=== PATIENT | male | born 1965 | race Caucasian/White ===

== ENCOUNTER 2017-06-04 13:03 | Emergency (ER) | payer SELFPAY ==
[2017-06-04 13:17] VITALS: BMI 29.1
[2017-06-04 15:41] LABS: MCH 30.8 pg (25.7-33.7); MCHC 34.5 g/dl (32.0-35.9); MEAN CELL VOLUME 89.5 fl (80-96); MEAN PLT VOLUME 8.7 fl (7.5-11.1); PLATELET COUNT 218 K/MM3 (134-434); RDW 12.7 % (11.9-15.9); WHITE BLOOD COUNT 8.7 K/mm3 (4.0-10.0)
--- NOTE | 2017-06-04 15:47 | EKG ---
Test Reason : Blood Pressure : / mmHG Vent. Rate : 050 BPM Atrial Rate : 050 BPM P-R Int : 142 ms QRS Dur : 086 ms QT Int : 410 ms P-R-T Axes : 056 007 039 degrees QTc Int : 373 ms SINUS BRADYCARDIA OTHERWISE NORMAL ECG WHEN COMPARED WITH ECG OF 28-MAR-2015 09:31, NO SIGNIFICANT CHANGE WAS FOUND Confirmed by BONNIE MORENO MD ([id number]) on 06/04/2017 3:47:32 PM Referred By: GUNNER JONES Confirmed By:BONNIE MORENO MD
[2017-06-04 16:05] LABS: ANION GAP 4 (8-16); CALCIUM 9.3 mg/dL (8.5-10.1); CO2 30 mmol/L (21-32); GLUCOSE,RANDOM 84 mg/dL (74-106)
[2017-06-04 16:07] LABS: CPK 180 IU/L (39-308); TROPONIN I < 0.02 ng/ml (0.00-0.05)
[2017-06-04] MEDS ORDERED: SODIUM CHLORIDE 1,000 ML IV STA (16:28)
[2017-06-04 17:21] LABS: URINE APPEARANCE CLEAR; URINE BILIRUBIN NEGATIVE (NEGATIVE); URINE BLOOD NEGATIVE (NEGATIVE); URINE COLOR LT. YELLOW; URINE GLUCOSE (UA) NEGATIVE (NEGATIVE); URINE KETONE NEGATIVE (NEGATIVE); URINE LEUK ESTERASE NEGATIVE (NEGATIVE); URINE NITRITE NEGATIVE (NEGATIVE); URINE PROTEIN NEGATIVE (NEGATIVE); URINE UROBILINOGEN 0.2 mg/dL (0.2-1.0)
--- NOTE | 2017-06-04 17:47 | PDOC ---
History of Present Illness - General Chief Complaint: Lightheaded Stated Complaint: DIZZINESS, LIGHTHEADED Time Seen by Provider: 06/04/17 14:36 History Source: Patient - History of Present Illness Initial Comments: 06/04/17 17:45 CC: Lightheadedness Patient is a 51 y.o. male with a PMH of GERD who presents to our facility today c/o of acute onset of lightheadedness. Patient states this afternoon he was sitting down at the table at home when he felt suddenly lightheaded without any associated shortness of breath, chest pain, diaphoresis or dizziness. Patient states he continued to feel lightheaded prompting his visit to the ED. Patient noted that he did feel intermittently dizzy (sensation of room spinning) while getting into the car to come to the hospital however this was momentary and resolved. ROS is positive for tingling and cramping pain in his groin as well as recent anal boil and blurry vision. Past History - Past Medical History Allergies/Adverse Reactions: Allergies Allergy/AdvReac Type Severity Reaction Status Date / Time No Known Allergies Allergy Verified 06/04/17 14:22 Home Medications: Ambulatory Orders NK [No Known Home Medication] 06/04/17 Other medical history: NONE - Psycho/Social/Smoking Cessation Hx Anxiety: No Suicidal Ideation: No Smoking History: Current every day smoker Have you smoked in the past 12 months: Yes Number of Cigarettes Smoked Daily: 10 Information on smoking cessation initiated: Yes 'Breaking Loose' booklet given: 06/04/17 Hx Alcohol Use: No Drug/Substance Use Hx: No Substance Use Type: None Review of Systems - Review of Systems Constitutional: No: Chills, Diaphoresis, Fever, Weakness HEENTM: Yes: Blurred Vision. No: Double Vision, Tinnitus, Throat Pain *Physical Exam - Vital Signs Last Vital Signs Temp Pulse Resp BP Pulse Ox 98.4 F 68 18 146/81 100 06/04/17 13:14 06/04/17 13:14 06/04/17 13:14 06/04/17 13:14 06/04/17 13:14 - Physical Exam General Appearance: Yes: Nourished, Appropriately Dressed HEENT: positive: EOMI, JOHN Neck: positive: Trachea midline, Supple Respiratory/Chest: positive: Lungs Clear, Normal Breath Sounds Cardiovascular: positive: Regular Rhythm, Regular Rate, S1, S2 Gastrointestinal/Abdominal: positive: Normal Bowel Sounds, Tender, Soft Male Genitalia: positive: normal genitalia Rectal Exam: positive: other Musculoskeletal: positive: Normal Inspection Extremity: positive: Normal Capillary Refill, Normal Inspection Neurologic: 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 yellow Urine Appearance Clear Urine pH 7.0 D Urine Protein Negative Urine Glucose (UA) Negative Urine Ketones Negative Urine Blood Negative Urine Nitrite Negative Urine Bilirubin Negative Urine Urobilinogen 0.2 Ur Leukocyte Esterase Negative 06/04/17 15:03 RBC 4.97 MCV 89.5 MCHC 34.5 RDW 12.7 MPV 8.7 - RADIOLOGY Radiology Studies Ordered: Category Date Time Status ABDOMEN US [US] Stat Ultrasound 06/04/17 16:29 Ordered - Medications Given in the ED: ED Medications Discontinued Medications Generic Name Dose Route Start Last Admin Trade Name Freq PRN Reason Stop Dose Admin Sodium Chloride 1,000 mls @ 1,000 mls/hr 06/04/17 16:28 06/04/17 16:35 Normal Saline - IV 06/04/17 17:27 1,000 mls/hr ASDIR STA Administration Medical Decision Making - Medical Decision Making 06/04/17 18:12 Patient is a 51 y.o. male who presents with acute onset of lightheadedness. As patient also c/o groin pain as well as abdominal pain (with subsequent TTP in RUQ as well as positive Encarnacion's sign on PE) as well as blurry vision initial differential diagnosis was broad including ACS vs. Hyperglycemia vs. Cholecystitis vs Dehydration vs. Vertigo. Patient was hemodynamically stable and PE was positive for Encarnacion's sign and scrotal/testicular exam was unremarkable. Patient had a normal gait and no positive signs of cerebellar dysfunction. EKG showed sinus bradycardia (HR 50 BPM) consistent with prior EKG. CBC and BMP were within normal limits and UA was negative for UTI. U/S was negative for cholecystitis and patient was given 1 L IV NS as well as Meclizine and symptoms resolved. Patient was discharged with follow up [address] [place] [address] to establish primary care and instructed to return to the ED should he develop shortness of breath, chest pain or severe discomfort. *DC/Admit/Observation/Transfer Diagnosis at time of Disposition: Vertigo - Discharge Dispostion Disposition: HOME Condition at time of disposition: Improved Admit: No - Patient Instructions Printed Discharge Instructions: DI for Vertigo, DI for Benign Paroxysmal Positional Vertigo Additional Instructions: Please call [phone] to establish primary care at [address] [place] [address]. - Attestations Physician Attestion: 06/04/17 20:34 I, Dr. Yanely Hathaway, attest that this document has been prepared under my direction and personally reviewed by me in its entirety. I further attest, that it accurately reflects all work, treatment, procedures and medical decision -making performed by me.
--- NOTE | 2017-06-04 18:58 | PDOC ---
Attending Attestation - Resident Resident Name: Yanely Hathaway - ED Attending Attestation I have performed the following: I have examined & evaluated the patient, The case was reviewed & discussed with the resident, I agree w/resident's findings & plan, Exceptions are as noted - HPI HPI: 06/04/17 19:10 51y M hx of GERD presents with feeling and lighthead for the past week, it tends to be worse when he is laying down and moving his head. Pt denies any double vision, dysartrhia, numbness/tingling/weakness, neck pain, headache. On exam the pt is in no acute distress, and has extinguising horizontal nysgagmus. cerebellar signs )finger to nose, rapid alternating movements were normal. The rest of his neuro exam and physical exam was as documented by dr. hathaway 06/04/17 19:50 labs reviewed no signs of anemia, metabolic derangement ekg noted for sinus bradycardia Suspect positional vertigo will give meclizine will reassess 06/04/17 20:41 pt feeling improved w meclizineambualtory iwth normal gait will dc with pmd fu return precautions were dsicussed - Physicial Exam PE: 06/06/17 16:56 see above - Medical Decision Making 06/06/17 16:56 see above Heart Score/ECG Review - ECG Impressions Comment:: 06/04/17 20:28 Twelve-lead EKG was performed and reviewed by me. There is normal sinus rhythm with a rate of 50 normal axis normal r wave progression no st change ssuggestive of acute ischemia
[2017-06-04] MEDS ORDERED: MECLIZINE HCL 25 MG TABLET (FP) PO ONE (19:09)
[2017-06-04] MEDS ORDERED: MECLIZINE HCL 25 MG TABLET (FP) ONE (19:21)
[2017-06-04] MEDS ORDERED: SODIUM CHLORIDE 1,000 ML IV ONE (19:35)
[2017-06-04 20:03] VITALS: TEMP 98.1
[2017-06-04 20:49] VITALS: BP 142/71; PULSE 59
== END 2017-06-04 20:51 | disposition home or self-care (01) ==
LOC: JER 13:03
PROC: 3E0337Z Introduction of Electrolytic and Water Balance Substance into Peripheral Vein, Percutaneous Approach (ICD-10-PCS; principal; 2017-06-04)
DX: R42 Dizziness and giddiness (principal); K21.9 Gastro-esophageal reflux disease without esophagitis; F17.210 Nicotine dependence, cigarettes, uncomplicated
CPT/HCPCS: 36415; 76705-TC; 80048; 81003; 82553; 84484; 85027; 93005; 93010; 99283-25

== ENCOUNTER 2020-04-24 11:15 | Emergency (ER) | payer SELFPAY ==
[2020-04-24 11:19] VITALS: BP 129/80; PULSE 68; TEMP 98.2; BMI 29.2
--- NOTE | 2020-04-24 12:19 | PDOC ---
Attending Attestation - Resident Resident Name: Alvaro Becerril - HPI HPI: 04/24/20 12:24 Pt presents to the ED complaining of L ankle pain and swelling after inverting his ankle yesterday. Denies other injuries. Used ice and cold air from the air conditoner yesterday with relief of his pain, but his became concerned when he was still having pain and swelling this morning and convinced him to come in. - Physicial Exam PE: 04/24/20 12:32 Agree with resident exam. PAtient is alert and oriented and in no acute distress. + mild tenderness and swelling over the lateral aspect of the dorsum of the foot, distal to the malleoulus. No tenderness at the medial or lateral malleoli, or at the base of the 5th metatarsal. PAtient is able to weight bear in the ED. - Medical Decision Making 04/24/20 12:39 Pt presents to the ED complaining of L ankle and foot pain after inverting his ankle yesterday. No xray needed by [facility] ankle rules. Will discharge home with angy wrap, instructions to use RICE and to return for worsening symptoms. Discharge - Discharge Information Problems reviewed: Yes Clinical Impression/Diagnosis: Ankle sprain Qualifiers: Encounter type: initial encounter Involved ligament of ankle: unspecified ligament Laterality: left Qualified Code(s): S93.402A - Sprain of unspecified ligament of left ankle, initial encounter Condition: Stable Disposition: HOME - Admission No - Follow up/Referral - Patient Discharge Instructions Patient Printed Discharge Instructions: DI for Ankle Sprain Additional Instructions: you came to the Ed for pain and swelling in your ankle that is most likely caused by an ankle sprain. You should rest your ankle as much as possible and use ice to help with the pain and swelling. keep your foot elevated as much as you can. Return to the ED for severe pain and swelling, if you become unable to bear weight, other worsening symptoms. For pain, take three over the counter ibuprofen or advils every 6-8 hours, with food - Post Discharge Activity Work/Back to School Note: Back to Work
--- NOTE | 2020-04-24 12:47 | PDOC ---
History of Present Illness - General Chief Complaint: Injury Stated Complaint: LEFT ANKLE PAIN Time Seen by Provider: 04/24/20 12:11 History Source: Patient Exam Limitations: No Limitations - History of Present Illness Initial Comments: 54 year old male without significant medical history presented to the ED for evaluation of left ankle injury that occurred yesterday while at work. He states that he "rolled" his ankle while slipping on some salt and felt pain to the ankle but was able to bear weight. He did not notice significant swelling or bruising to the area and had not attempted any medications or icing to improve the pain. Past History - Medical History Allergies/Adverse Reactions: Allergies Allergy/AdvReac Type Severity Reaction Status Date / Time No Known Allergies Allergy Verified 04/24/20 11:16 Home Medications: Ambulatory Orders NK [No Known Home Medication] 04/24/20 COPD: No - Psycho-Social/Smoking History Smoking History: Never smoked Have you smoked in the past 12 months: No Number of Cigarettes Smoked Daily: 10 Information on smoking cessation initiated: No 'Breaking Loose' booklet given: 06/04/17 - Substance Abuse Hx (Audit-C & DAST Scrn) How often the patient has a drink containing alcohol: Never Score: In Men: 4 or > Positive; In Women: 3 or > Positive: 0 Screen Result (Pos requires Nsg. Audit-10AR): Negative In the last yr the pt used illegal drug/Rx for NonMed reason: No Score: Yes response is considered Positive: 0 Screen Result (Positive result requires Nsg. DAST-10): Negative Review of Systems - Review of Systems Able to Perform ROS?: Yes Is the patient limited Senegalese proficient: No Constitutional: No: Chills, Fever Respiratory: No: Cough, Shortness of Breath Cardiac (ROS): No: Chest Pain, Lightheadedness, Palpitations, Syncope ABD/GI: No: Constipated, Diarrhea, Nausea, Vomiting : No: Dysuria, Frequency Integumentary: No: Bruising Neurological: No: Headache, Numbness, Tingling, Weakness *Physical Exam - Vital Signs Last Vital Signs Temp Pulse Resp BP Pulse Ox 98.2 F 68 18 129/80 99 04/24/20 11:15 04/24/20 11:15 04/24/20 11:15 04/24/20 11:15 04/24/20 11:15 - Physical Exam General Appearance: Yes: Nourished, Appropriately Dressed. No: Apparent Distress HEENT: positive: EOMI, Normal Voice Respiratory/Chest: positive: Lungs Clear, Normal Breath Sounds Cardiovascular: positive: Regular Rhythm, Regular Rate, S1, S2 Musculoskeletal: negative: Decreased Range of Motion Extremity: positive: Normal Range of Motion, Other (No swelling or bruising at left foot/ankle, mild tenderness inferior to lateral malleolus but no tenderness superiorly, no tenderness superior to medial malleolus, no tenderness at midfoot, navicular, or base of 5th metatarsal. Weight bearing. ). negative: Swelling Medical Decision Making - Medical Decision Making 54 year old male without significant medical history presented to the ED with left ankle injury due to "rolling" it while at work yesterday. The left ankle did not have swelling or bruising and was weight bearing. No tenderness superior to medial/lateral malleolus bilaterally, and he was able to ambulate, so fracture seemed unlikely and did not need ankle X-Ray according to [facility]le rules. He had no complaint of any other injury and was safe to discharge home. Discharge - Discharge Information Problems reviewed: Yes Clinical Impression/Diagnosis: Musculoskeletal pain Ankle sprain Qualifiers: Encounter type: initial encounter Involved ligament of ankle: unspecified ligament Laterality: left Qualified Code(s): S93.402A - Sprain of unspecified ligament of left ankle, initial encounter Condition: Stable Disposition: HOME - Admission No - Follow up/Referral - Patient Discharge Instructions Patient Printed Discharge Instructions: DI for Ankle Sprain Additional Instructions: you came to the Ed for pain and swelling in your ankle that is most likely caused by an ankle sprain. You should rest your ankle as much as possible and use ice to help with the pain and swelling. keep your foot elevated as much as you can. Return to the ED for severe pain and swelling, if you become unable to bear weight, other worsening symptoms. For pain, take three over the counter ibuprofen or advils every 6-8 hours, with food - Post Discharge Activity Work/Back to School Note: Back to Work
== END 2020-04-24 12:30 | disposition home or self-care (01) ==
LOC: FER 11:15
DX: S93.402A Sprain of unspecified ligament of left ankle, initial encounter (principal)
CPT/HCPCS: 99283-25

== ENCOUNTER 2023-01-10 17:37 | Emergency (ER) | payer BC ==
[2023-01-10 17:47] VITALS: BP 139/76; PULSE 70; RESP 18; TEMP 98.4; BMI 28.3
[2023-01-10] MEDS ORDERED: oxyCODONE HCL 5 MG TABLET PO ONE (18:30)
[2023-01-10] MEDS ORDERED: oxyCODONE HCL 5 MG TABLET ONE (18:36)
[2023-01-10] MEDS ORDERED: KETOROLAC TROMETHAMINE 30 MG/1 ML VIAL IM ONE (19:39)
[2023-01-10] MEDS ORDERED: KETOROLAC TROMETHAMINE 30 MG/1 ML VIAL ONE (19:41)
== END 2023-01-10 20:08 | disposition home or self-care (01) ==
LOC: JERFT 17:37
PROC: 3E0233Z Introduction of Anti-inflammatory into Muscle, Percutaneous Approach (ICD-10-PCS; principal; 2023-01-10)
DX: S82.832A Other fracture of upper and lower end of left fibula, initial encounter for closed fracture (principal); W01.0XXA Fall on same level from slipping, tripping and stumbling without subsequent striking against object, initial encounter; Y93.K1 Activity, walking an animal
CPT/HCPCS: 73502-TC-LT-FY; 73590-TC-LT-FY; 73610-TC-LT-FY; 73630-TC-LT; 99285-25

== ENCOUNTER 2023-01-14 05:30 | Day surgery (SDC) | payer BC ==
[2023-01-13 09:37] VITALS: BMI 29.1
[2023-01-14] MEDS ORDERED: BUPIVACAINE HCL/PF 0.5% (5MG/ML) 10 ML VIAL ONE (11:17)
[2023-01-14] MEDS ORDERED: DEXAMETHASONE SOD PHOSPHATE 10 MG/1 ML VIAL ONE ×2 (11:17→11:22)
[2023-01-14] MEDS ORDERED: MIDAZOLAM HCL 2 MG/2 ML SINGLE DOSE VIAL ONE ×2 (11:18→11:22)
[2023-01-14] MEDS ORDERED: PROPOFOL 20 ML ONE (12:29)
[2023-01-14] MEDS ORDERED: ceFAZolin SODIUM 1 GM VIAL ONE (12:38)
[2023-01-14] MEDS ORDERED: ceFAZolin SODIUM 1 GM VIAL IVPB ONE (12:40)
[2023-01-14] MEDS ORDERED: ONDANSETRON 4 MG/2 ML VIAL ONE ×2 (12:44→13:32)
[2023-01-14] MEDS ORDERED: DEXAMETHASONE SOD PHOSPHATE 4 MG/1 ML VIAL ONE (12:44)
[2023-01-14] MEDS ORDERED: oxyCODONE HCL 5 MG TABLET PO PRN (14:00)
[2023-01-14] MEDS ORDERED: ONDANSETRON 4 MG/2 ML VIAL IVPUSH PRN (14:00)
[2023-01-14] MEDS ORDERED: LACTATED RINGERS SOLUTION 1,000 ML IV SCH (14:00)
[2023-01-14] MEDS ORDERED: CEFAZOLIN SODIUM 2 GM VIAL IVPB ONE (14:00)
[2023-01-14 15:41] VITALS: RESP 16
[2023-01-14 16:16] VITALS: BP 140/84; PULSE 72; TEMP 97.1
== END 2023-01-14 16:25 | disposition home or self-care (01) ==
LOC: JASU-SURG 05:30
PROVIDERS: ATTEND Orthopaedic Surgery
PROC: 0QSK04Z Reposition Left Fibula with Internal Fixation Device, Open Approach (ICD-10-PCS; principal; 2023-01-14 11:00)
DX: S82.62XA Displaced fracture of lateral malleolus of left fibula, initial encounter for closed fracture (principal); X58.XXXA Exposure to other specified factors, initial encounter; Y92.9 Unspecified place or not applicable; Y93.9 Activity, unspecified
CPT/HCPCS: 27792; C1713; 76000-TC-FY; 94760; J1100

== ENCOUNTER 2023-06-12 04:12 | Day surgery (SDC) | payer BC ==
[2023-06-10 16:57] VITALS: BMI 29.5
[~2023-06-12 04:12] MED LIST: BUPIVACAINE HCL/PF 0.25% (2.5MG/ML) 10 ML VIAL IJ ONE; IOHEXOL 180 MG/1 ML ML IJ ONE; LIDOCAINE HCL 1% PRESERVATIVE FREE - 30ML VIAL IJ ONE; TRIAMCINOLONE ACET 40MG/1ML VIAL IJ ONE
[2023-06-12] MEDS ORDERED: ACETAMINOPHEN 500 MG TABLET (FP) PO PRN (10:13)
[2023-06-12] MEDS ORDERED: SODIUM CHLORIDE 1,000 ML IV SCH (10:15)
[2023-06-12 10:42] VITALS: RESP 18
[2023-06-12] MEDS ORDERED: LIDOCAINE HCL 1% PRESERVATIVE FREE - 30ML VIAL IJ ONE (15:37)
[2023-06-12] MEDS ORDERED: BUPIVACAINE HCL/PF 0.25% (2.5MG/ML) 10 ML VIAL IJ ONE (15:37)
[2023-06-12] MEDS ORDERED: IOHEXOL 180 MG/1 ML ML IJ ONE (15:37)
[2023-06-12] MEDS ORDERED: TRIAMCINOLONE ACET 40MG/1ML VIAL IJ ONE (15:37)
[2023-06-12] MEDS ORDERED: DEXAMETHASONE SOD PHOSPHATE 10 MG/1 ML VIAL IVPUSH ONE (15:37)
[2023-06-12] MEDS ORDERED: MIDAZOLAM HCL 2 MG/2 ML SINGLE DOSE VIAL ONE (15:47)
[2023-06-12 18:07] VITALS: PULSE 60; TEMP 98.2
[2023-06-12 18:12] VITALS: BP 140/70
== END 2023-06-12 17:00 | disposition home or self-care (01) ==
LOC: JASU-SURG 04:12
PROVIDERS: ATTEND Pain Medicine Pain Medicine
PROC: 3E0T33Z Introduction of Anti-inflammatory into Peripheral Nerves and Plexi, Percutaneous Approach (ICD-10-PCS; 2023-06-12)
PROC: 3E0T3BZ Introduction of Anesthetic Agent into Peripheral Nerves and Plexi, Percutaneous Approach (ICD-10-PCS; principal; 2023-06-12 12:15)
DX: G89.4 Chronic pain syndrome (principal)
CPT/HCPCS: 76000-TC-FY; J1100